=== PATIENT | male | born 1965 | race Caucasian/White ===

== ENCOUNTER 2021-04-27 12:38 | Emergency (ER) | payer OTHER, SELFPAY ==
[2021-04-27 12:52] VITALS: BP 128/92; PULSE 82; RESP 16; TEMP 36.1; O2SAT 100
--- NOTE | 2021-04-27 13:14 | ED.GENADULT ---
HPI - General Adult General Chief complaint: Wound/Laceration Stated complaint: lt thumb inf Source: patient Mode of arrival: ambulatory Limitations: no limitations History of Present Illness HPI narrative: Patient presents for evaluation of pain and swelling to the left thumb since yesterday. He indicates that 6 days ago he got his left thumb caught between a folding door and a wall. He woke up yesterday with swelling and an area that looked infectious to him surround the nailplate of the left thumb. He states pain is 5/10 in severity. No descriptive quality to the pain. No paresthesias or loss of ROM. However, movement causes worsening pain. he is right hand dominant. He is not diabetic. Date of last tetanus unknown. Related Data Allergies Allergy/AdvReac Type Severity Reaction Status Date / Time No Known Allergies Allergy Mild Verified 04/27/21 12:53 Review of Systems Review of Systems: CONSTITUTIONAL: Denies fever, chills, or sweats. EYES: Denies visual changes, redness, or discharge. ENT: Denies rhinorrhea, congestion, sore throat, or otalgia. CARDIOVASCULAR: Denies chest pain, palpitations, or edema. RESPIRATORY: Denies cough or dyspnea. GASTROINTESTINAL: Denies abdominal pain, nausea, vomiting, or diarrhea. GENITOURINARY: Denies dysuria or hematuria. SKIN: Reports redness to left thumb. Denies rash or itching. MUSCULOSKELETAL: Reports pain in left thumb. Denies back pain NEUROLOGIC: Denies headache, numbness, dizziness, or weakness. PSYCHIATRIC: Denies anxiety or depression. [facility] Past Medical History Medical History (Updated 04/27/21 @ 14:14 by ROBER Ace, ) Hx of colonic polyps Surgical History Surgical History No pertinent past surgical history Family History Family History Father Family history of diabetes mellitus in first degree relative Social History Social History (Updated 04/27/21 @ 14:15 by ROBER Ace, ) Smoking status: Never smoker Second hand tobacco smoke exposure: No Alcohol intake: current Substance use: never Living arrangements: with family Gender identity (if verbalized by the patient): Male Sexual Orientation (if Verbalized by the Patient): Straight or Heterosexual Spiritual care concerns: No Exam Narrative: GENERAL: Well-appearing, well-nourished, and in no acute distress. HEAD: Normocephalic, atraumatic. EYES: PERRLA and EOMI. ENT: Nares clear, no rhinorrhea or epistaxis. Mucous membranes moist. Oropharynx without tonsillar hypertrophy exudate or other lesions. Bilateral TMs pearly rosario nonbulging NECK: Supple. No adenopathy or masses. No carotid bruits or JVD CHEST: Clear to auscultation. No respiratory distress. No wheezes rales or rhonchi HEART: Regular rate and rhythm. No murmur heard. Normal peripheral pulses. ABDOMEN: Soft, nontender, nondistended, normal active bowel sounds. EXTREMITIES: Normal range of motion. No edema. SKIN: Redness to distal phalanx of left thumb. Skin tissue surrounding nailplate of left thumb has a white appearance with associated soft tissue swelling NEURO: No focal deficits. Alert and oriented x3. PSYCH: Normal mood and affect. Course Course Emergency Course: This is a 56-year-old male who presented with paronychia of the left thumb. I recommended an x-ray, which he declined. He was updated on his tetanus. He received a digital block and I drained paronychia. Wound culture obtained. Pt tolerated well. He was advised to follow up outpatient for further evaluation and treatment and go to ER for systemic signs of infection. Will dc with bactrim and cephalexin. He may take NSAIDs for pain. Pt in agreement with plan of care. Level of Care: Express Care Visit Vital Signs Vital signs: Vital Signs Temperature 36.1 C L 04/27/21 12:52 Pulse Rate 82 04/27/21 12:52 Respir
[2021-04-27] MEDS: TETANUS,DIPHTHERIA,AC PERTUSSIS ADULT (0.5 ML) BOOSTRIX IM (13:29)
--- NOTE | 2021-04-27 13:34 | PC.NURSE ---
1% Lidocaine 20mL vial not available in pyxis. Override for 1% Lidocaine 10mL vial.
== END 2021-04-27 14:14 | disposition home or self-care (01) ==
PROVIDERS: Emergency Provider Nurse Practitioner; PCP Internal Medicine
DX: L03.012 Cellulitis of left finger (principal); Z23 Encounter for immunization
CPT/HCPCS: 10060; 87070; 87205; 90471; 90715; 99213; G0463

== ENCOUNTER 2021-08-15 01:27 | Day surgery (SDC) | payer OTHER, SELFPAY ==
[2021-07-30 14:59] VITALS: BMI 29.2
--- NOTE | 2021-08-13 12:34 | PM.HPGS ---
History of Present Illness History of Present Illness Consent: Risks, benefits, and alternatives have been discussed and questions answered. Patient agrees to proceed with procedure. Chief complaint: hx of colon polyps Narrative: oBo Quintero is a 56 year old male referred for colon cancer screening. He had 2 adenomas removed about 5 years ago. Review of Systems Review of Systems: All systems reviewed & are unremarkable except as noted in HPI and below PMFSH Past Medical History Medical History Diabetes mellitus GERD (gastroesophageal reflux disease) Hx of colonic polyps Hyperlipidemia Surgical History Surgical History No pertinent past surgical history Family History Family History Father Family history of diabetes mellitus in first degree relative Social History Social History Smoking status: Never smoker Second hand tobacco smoke exposure: No Alcohol intake: current Alcohol use details: social Substance use: never Living arrangements: with family Gender identity (if verbalized by the patient): Male Sexual Orientation (if Verbalized by the Patient): Straight or Heterosexual Spiritual care concerns: No Meds Home Medications and Allergies Home Medications Medication Instructions Recorded Confirmed Type sodium sul 1.479 gram-potas ch See Rx Instructions PO PER PKG DIR 07/12/21 08/15/21 Rx 0.188 gram-magnes sul 0.225 gram #24 tabs tablet (Sutab) atorvastatin 20 mg tablet 20 mg PO DAILY #90 tabs 08/09/21 08/15/21 Rx metformin 500 mg tablet 1,000 mg PO BID #360 tabs 08/12/21 08/15/21 Rx Allergies Allergy/AdvReac Type Severity Reaction Status Date / Time No Known Allergies Allergy Mild Verified 08/15/21 06:58 Exam Resp: Auscultation: clear to auscultation bilaterally Cardio: Rate: regular rate Rhythm: regular rhythm GI: GI Palp: Yes Soft to palpation and No Tenderness to palpation present (GI) Assessment and Plan Assessment and plan (1) Colon cancer screening: Code(s): Z12.11 - Encounter for screening for malignant neoplasm of colon Status: Acute Assessment and Plan: Colonoscopy with possible biopsy or polypectomy or cautery or injection of substances.
--- NOTE | 2021-08-14 18:48 | P.PNAN_ITS ---
Anes - Initial Pre Proc Eval Procedure: Operation Date: 08/15/21 08:00 Proposed Procedures p Screening Colonoscopy - Boo Anderson MD Date/Time: 08/14/21 18:48 Surgeon: Boo Anderson MD Pre Op Diagnosis: hx of colon polyps Patient Data Age: 56 Gender: M Height: 1.83 m Weight: 98 kg Allergies Allergy/AdvReac Type Severity Reaction Status Date / Time No Known Allergies Allergy Mild Verified 08/15/21 06:58 Home Medications Medication Instructions Recorded Confirmed Type sodium sul 1.479 gram-potas ch See Rx Instructions PO PER PKG DIR 07/12/21 08/15/21 Rx 0.188 gram-magnes sul 0.225 gram #24 tabs tablet (Sutab) atorvastatin 20 mg tablet 20 mg PO DAILY #90 tabs 08/09/21 08/15/21 Rx metformin 500 mg tablet 1,000 mg PO BID #360 tabs 08/12/21 08/15/21 Rx Patient hx anesthesia problems: none Family hx anesthesia problems: none Results Review: All pre-operative results and documents have been reviewed as part of the pre- operative evaluation. [facility] Past Medical History Medical History Diabetes mellitus GERD (gastroesophageal reflux disease) Hx of colonic polyps Hyperlipidemia Surgical History Surgical History No pertinent past surgical history Family History Family History Father Family history of diabetes mellitus in first degree relative Social History Social History Smoking status: Never smoker Second hand tobacco smoke exposure: No Alcohol intake: current Alcohol use details: social Substance use: never Living arrangements: with family Gender identity (if verbalized by the patient): Male Sexual Orientation (if Verbalized by the Patient): Straight or Heterosexual Spiritual care concerns: No Anes - Eval Final PreProcedure Day of Procedure 08/14/21 18:48 Patient weight: overweight Heart: regular rate and rhythm Lungs: clear to auscultation Airway: Mallampati scale class II Neurological: alert and oriented Last oral intake: >/= 8 hours ASA classification: III Emergent: no Anesthetic plan: proceed Anesthesia type and monitoring: general GIVS and standard monitoring Results Review: All pre-operative results and documents have been reviewed as part of the pre- operative evaluation. Informed Consent: The patient's anesthetic plan and its attendant risks and benefits were discussed with the patient/family/POA. Questions were solicited and answers provided to the satisfaction of the patient/family/POA.
[2021-08-15] MEDS: LACTATED RINGERS 1,000 ML 150 ML IV CONT (06:50)
[2021-08-15 06:54] VITALS: BP 114/70; PULSE 62; RESP 20; TEMP 36.3; O2SAT 99; BMI 29.0
[2021-08-15 07:19] LABS: Glucose Point of Care 127 mg/dl (65-105)
[2021-08-15 08:13] VITALS: BP 114/70; PULSE 62; RESP 20; O2SAT 99
[2021-08-15 08:23] VITALS: BP 123/91; PULSE 69; RESP 20; O2SAT 99
[2021-08-15 08:33] VITALS: BP 127/79; PULSE 72; RESP 17; O2SAT 100
== END 2021-08-15 08:44 | disposition home or self-care (01) ==
PROVIDERS: PCP Family Medicine; Visit Provider Internal Medicine Gastroenterology
PROC: 0DJD8ZZ Inspection of Lower Intestinal Tract, Via Natural or Artificial Opening Endoscopic (ICD-10-PCS; CPT 45378; principal; 2021-08-15 08:00)
DX: Z12.11 Encounter for screening for malignant neoplasm of colon (principal); Z86.010 Personal history of colon polyps; K57.30 Diverticulosis of large intestine without perforation or abscess without bleeding; Z79.84 Long term (current) use of oral hypoglycemic drugs; E11.9 Type 2 diabetes mellitus without complications; K21.9 Gastro-esophageal reflux disease without esophagitis; E78.5 Hyperlipidemia, unspecified
CPT/HCPCS: 45378; 82948; J2704; J7120

== ENCOUNTER 2022-01-14 09:13 | Outpatient (CLI) | payer OTHER, SELFPAY ==
[2022-01-14 19:12] LABS: Cholesterol 136 mg/dL (0-200); HDL Direct 39 mg/dL; Triglycerides 146 mg/dL (<150)
[2022-01-14 19:23] LABS: LDL Cholesterol Direct 57 mg/dL
[2022-01-14 21:02] LABS: Hemoglobin A1C 9.2 % (<5.7)
[2022-01-14 21:45] LABS: Creatinine Urine 207.1 mg/dL
[2022-01-14 21:50] LABS: Microalbumin Urine Random 18.7 mg/L (0-16.7)
== END 2022-01-14 09:14 | disposition home or self-care (01) ==
LOC: ANHGOSHLAB 09:15
PROVIDERS: PCP Family Medicine; Visit Provider Family Medicine
DX: E78.5 Hyperlipidemia, unspecified (principal); E11.65 Type 2 diabetes mellitus with hyperglycemia
CPT/HCPCS: 36415; 80061; 82043; 83036

== ENCOUNTER 2022-07-15 09:58 | Outpatient (CLI) | payer OTHER, SELFPAY ==
[2022-07-15 14:32] LABS: Alanine Aminotransferase 63 U/L (6-50); Albumin Level 4.2 g/dL (3.5-5.1); Alkaline Phosphatase 74 U/L (38-126); Anion Gap 8 mmol/L (8-16); Aspartate Amino Transferase 56 U/L (17-59); Bilirubin,Total 0.4 mg/dL (0.2-1.3); Blood Urea Nitrogen 14 mg/dL (9-20); Calcium 8.4 mg/dL (8.4-10.2); Carbon Dioxide 27 mmol/L (22-30); Chloride 102 mmol/L (98-107); Cholesterol 162 mg/dL (0-200); Estimated Glomerular Filt Rate > 60; Glucose 126 mg/dL (65-110); HDL Direct 44 mg/dL; Sodium 137 mmol/L (137-145); Triglycerides 136 mg/dL (<150)
[2022-07-15 14:50] LABS: LDL Cholesterol Direct 79 mg/dL
[2022-07-15 14:52] LABS: Creatinine Urine 274.3 mg/dL
[2022-07-15 14:56] LABS: MALB Creatinine Ratio 10.9 mg/g (0-30)
[2022-07-15 14:57] LABS: Prostate Specific Antigen 1.1 ng/mL (< OR = 4.0)
[2022-07-15 14:59] LABS: Hemoglobin A1C 7.2 % (<5.7)
== END 2022-07-15 09:59 | disposition home or self-care (01) ==
LOC: ANHGOSHLAB 09:59
PROVIDERS: PCP Family Medicine; Visit Provider Family Medicine
DX: Z13.228 Encounter for screening for other metabolic disorders (principal); Z13.220 Encounter for screening for lipoid disorders; E11.9 Type 2 diabetes mellitus without complications; Z12.5 Encounter for screening for malignant neoplasm of prostate
CPT/HCPCS: 36415; 80053; 80061; 82043; 83036; 84153; G0103

== ENCOUNTER 2023-02-10 16:21 | Emergency (ER) | payer OTHER, SELFPAY ==
[2023-02-10 16:29] VITALS: BP 125/86; PULSE 78; RESP 16; TEMP 36.6; O2SAT 99
--- NOTE | 2023-02-10 16:30 | ED.GENADULT ---
HPI - General Adult General Chief complaint: Unspecified Stated complaint: Nose Irritation Time Seen by Provider: 02/10/23 16:32 Source: patient Mode of arrival: ambulatory Limitations: no limitations Related Data Allergies Allergy/AdvReac Type Severity Reaction Status Date / Time No Known Allergies Allergy Mild Verified 01/15/23 10:46 Review of Systems Review of Systems: Pertinent positives per HPI. Patient denies any fever, chills, rash, headache, visual changes, dizziness, cough, shortness of breath, chest pain, palpitations, nausea, vomiting, diarrhea, constipation, abdominal pain, or any urinary issues. PMFSH Past Medical History Medical History Diabetes mellitus GERD (gastroesophageal reflux disease) Hx of colonic polyps Hyperlipidemia Surgical History Surgical History No pertinent past surgical history Family History Family History Father Family history of diabetes mellitus in first degree relative Social History Social History Smoking status: Never smoker Second hand tobacco smoke exposure: No Alcohol intake: current Alcohol use details: social Substance use: never Lack of Transportation: No Lack of Food: Never True Current Housing: I Have Housing Concerned About Future Housing: No Difficulty Paying Gas/Electric Bills: No Difficulty Paying for Meds: No Currently Unemployed: No Education: Bachelor's Degree Difficulty w/ Childcare or Family Care: No Living arrangements: with family Gender identity (if verbalized by the patient): Male Sexual Orientation (if Verbalized by the Patient): Straight or Heterosexual Spiritual care concerns: No Comments At the time of my signature, I reviewed and agree with the nursing past medical, surgical, social, and family history. There is no relevant family history pertinent to the patient complaint. Exam Narrative: General: Well-developed, well nourished, in no apparent distress Head: Normocephalic, atraumatic Eyes: Pupils equally round and reactive to light bilaterally, EOM intact, sclera and conjunctive clear, no discharge, lids normal Ears: TMs intact and clear, ear canals clear, no drainage, grossly hearing normal. Nose: Nares patent, no discharge, no inflammation, no sinus tenderness. Mouth: Oral pharynx without lesions or masses, good dentition, MMM. Neck: Supple, trachea midline, no enlargement of anterior or posterior cervical nodes, no thyroid masses or goiter palpable. Cardio: Regular rate and rhythm, s1 and s2 normal, no murmur appreciated. Resp: Clear to auscultation bilaterally, no rhonchi, rales, wheezing or rubs Course Course Emergency Course: Portions of this record may have been created with voice recognition software. Level of Care: Express Care Visit Vital Signs Vital signs: Vital Signs Temperature 36.6 C 02/10/23 16:29 Pulse Rate 78 02/10/23 16:29 Respiratory Rate 16 02/10/23 16:29 Blood Pressure 125/86 02/10/23 16:29 Pulse Oximetry 99 02/10/23 16:29 Temperature 36.6 C 02/10/23 16:29 Pulse Rate 78 02/10/23 16:29 Respiratory Rate 16 02/10/23 16:29 Blood Pressure 125/86 02/10/23 16:29 Pulse Oximetry 99 02/10/23 16:29 Vital signs reviewed Medical Decision Making Vital Signs Vital Signs: Vital Signs Temperature 36.6 C 02/10/23 16:29 Pulse Rate 78 02/10/23 16:29 Respiratory Rate 16 02/10/23 16:29 Blood Pressure 125/86 02/10/23 16:29 Pulse Oximetry 99 02/10/23 16:29 Temperature 36.6 C 02/10/23 16:29 Pulse Rate 78 02/10/23 16:29 Respiratory Rate 16 02/10/23 16:29 Blood Pressure 125/86 02/10/23 16:29 Pulse Oximetry 99 02/10/23 16:29 Discharge Plan Discharge Clinical Impression: [place]
== END 2023-02-10 16:36 | disposition home or self-care (01) ==
PROVIDERS: Emergency Provider Nurse Practitioner Family; PCP Family Medicine
DX: A49.9 Bacterial infection, unspecified (principal); E11.9 Type 2 diabetes mellitus without complications; E78.5 Hyperlipidemia, unspecified
CPT/HCPCS: 99213; G0463

== ENCOUNTER 2023-07-16 11:16 | Outpatient (CLI) | payer OTHER, SELFPAY ==
[2023-07-16 13:50] LABS: Alanine Aminotransferase 46 U/L (6-50); Albumin Level 4.6 g/dL (3.5-5.1); Alkaline Phosphatase 120 U/L (38-126); Anion Gap 8 mmol/L (4-12); Aspartate Amino Transferase 53 U/L (17-59); Bilirubin,Total 0.9 mg/dL (0.2-1.3); Blood Urea Nitrogen 14 mg/dL (9-20); Calcium 9.3 mg/dL (8.4-10.2); Carbon Dioxide 26 mmol/L (22-30); Chloride 102 mmol/L (98-107); Estimated Glomerular Filt Rate > 60; Glucose 247 mg/dL (65-110); HDL Direct 39 mg/dL; Potassium 4.1 mmol/L (3.4-5.0); Sodium 136 mmol/L (137-145); Triglycerides 150 mg/dL (<150)
[2023-07-16 13:58] LABS: Microalbumin Urine Random 7.9 mg/L (0-16.7)
[2023-07-16 14:00] LABS: LDL Cholesterol Direct 103 mg/dL
[2023-07-16 14:08] LABS: MALB Creatinine Ratio 10.7 mg/g (0-30)
[2023-07-16 14:33] LABS: Cholesterol 186 mg/dL (0-200); Prostate Specific Antigen 0.8 ng/mL (< OR = 4.0)
[2023-07-16 21:42] LABS: Hemoglobin A1C 11.3 % (<5.7)
== END 2023-07-16 11:17 | disposition home or self-care (01) ==
LOC: ANHGOSHLAB 11:17
PROVIDERS: PCP Family Medicine; Visit Provider Family Medicine
DX: Z13.220 Encounter for screening for lipoid disorders (principal); Z12.5 Encounter for screening for malignant neoplasm of prostate; E11.9 Type 2 diabetes mellitus without complications; Z13.228 Encounter for screening for other metabolic disorders
CPT/HCPCS: 36415; 80053; 80061; 82043; 83036; 84153; G0103

== ENCOUNTER 2023-11-16 11:07 | Outpatient (CLI) | payer OTHER, SELFPAY ==
[2023-11-16 13:52] LABS: Alanine Aminotransferase 20 U/L (6-50); Albumin Level 4.4 g/dL (3.5-5.1); Alkaline Phosphatase 101 U/L (38-126); Anion Gap 11 mmol/L (4-12); Aspartate Amino Transferase 39 U/L (17-59); Bilirubin,Total 0.6 mg/dL (0.2-1.3); Blood Urea Nitrogen 13 mg/dL (9-20); Calcium 9.2 mg/dL (8.4-10.2); Carbon Dioxide 25 mmol/L (22-30); Chloride 104 mmol/L (98-107); Estimated Glomerular Filt Rate > 60; Glucose 125 mg/dL (65-110); Sodium 140 mmol/L (137-145)
== END 2023-11-16 11:08 | disposition home or self-care (01) ==
LOC: ANHGOSHLAB 11:08
PROVIDERS: PCP Family Medicine; Visit Provider Family Medicine
DX: Z13.228 Encounter for screening for other metabolic disorders (principal); E11.9 Type 2 diabetes mellitus without complications
CPT/HCPCS: 36415; 80053; 83036

== ENCOUNTER 2024-03-30 16:57 | Emergency (ER) | payer OTHER, SELFPAY ==
[2024-03-30 17:17] VITALS: BP 133/84; PULSE 79; RESP 16; O2SAT 99
--- NOTE | 2024-03-30 17:46 | ED_ITS ---
HPI - URI/Sore Throat General Chief Complaint: Upper Respiratory Infection Stated Complaint: Head Congestion History of Present Illness HPI Narrative: 59-year-old male presented for complaint of nasal congestion 1 week. Endorses sinus pressure. Denies nausea vomiting, diarrhea, fevers or chills. Using [id number] medicine for symptoms. Related Data Home Medications ?Medication ?Instructions ?Recorded ?Confirmed ?Last Taken ?Type atorvastatin 40 mg tablet 40 mg PO DAILY 09/14/23 11/16/23 Unknown History Allergies Allergy/AdvReac Type Severity Reaction Status Date / Time No Known Allergies Allergy Mild Verified 03/30/24 17:18 Review of Systems Review of Systems: Per HPI [facility] Past Medical History Medical History GERD (gastroesophageal reflux disease) Hyperlipidemia Hx of colonic polyps Diabetes mellitus Surgical History Surgical History No pertinent past surgical history Family History Family History Father Family history of diabetes mellitus in first degree relative Social History Social History Smoking status: Never smoker Second hand tobacco smoke exposure: No Alcohol intake: current Alcohol use details: social Substance use: never Lack of Transportation: No Lack of Food: Never True Current Housing: I Have Housing Concerned About Future Housing: No Difficulty Paying Gas/Electric Bills: No Difficulty Paying for Meds: No Currently Unemployed: No Education: Bachelor's Degree Difficulty w/ Childcare or Family Care: No Living arrangements: with family Gender identity (if verbalized by the patient): Male Sexual Orientation (if Verbalized by the Patient): Straight or Heterosexual Spiritual care concerns: No Exam Narrative: GENERAL: well-appearing, no acute distress. EYES: conjunctivae clear ENT: Mucous membranes moist. TM pearly rosario with normal light reflex bilaterally; no tragal tenderness. Oropharynx not erythematous without lesions. No drooling, no hoarseness, no trismus, uvula midline. No tripod positioning, hot potato voice, or soft palate swelling. NECK: Supple. No lymphadenopathy CHEST: Clear to auscultation, breath sounds equal. No respiratory distress, speaks in full sentences. HEART: Regular rate and rhythm. No murmur heard. SKIN: Warm, dry, no rash. NEURO: Alert and oriented x3. Course Course Emergency Course: Patient is aware of diagnosis, understands and agrees to treatment plan. Anticipatory guidance given. Patient agrees to follow-up as directed and is aware of reasons to seek care at the emergency department. Portions of this record may have been created with voice recognition software Level of Care: Express Care Visit Vital Signs Vital signs: Vital Signs Pulse Rate 79 03/30/24 17:17 Respiratory Rate 16 03/30/24 17:17 Blood Pressure 133/84 03/30/24 17:17 Pulse Oximetry 99 03/30/24 17:17 Pulse Rate 79 03/30/24 17:17 Respiratory Rate 16 03/30/24 17:17 Blood Pressure 133/84 03/30/24 17:17 Pulse Oximetry 99 03/30/24 17:17 MDM - URI/Sore Throat MDM Narrative Medical decision making narrative: Discussed physical exam findings, Advise supportive treatments. Patient is appropriate for outpatient treatment and follow-up. Differential Diagnosis Differential diagnosis: Likely upper respiratory infection, otitis media, sinusitis, viral infection and pharyngitis Discharge Plan Discharge Clinical Impression: Upper respiratory infection Patient Disposition: Home, Self-Care Condition: Stable Instructions: Antibiotic Form, Sinusitis (ED) Additional Instructions: Take antibiotic as directed Flonase spray and Zyrtec (or Claritin/Lupe) over the counter Cough syrup may cause drowsiness; avoid driving or take it at night time. Tylenol 1000mg every 8 hours as needed for pain Rest, fluids, and increase humidity of the air at home. Follow up with your primary care provider in 1 week. Go to the ER for worsening symptoms or concerns. Patient Language: Greek Prescriptions: New amoxicillin-pot clavulanate 875-125 mg tablet 1 tablet PO Q12H 7 Days Qty: 14 0RF No Action (DME) blood-glucose meter [Contour Meter] Misc See Rx Instructions .Route Qty: 1 0RF Rx Instructions: CHECK BG PRN SYMPTOMS (DME) Contour Test Strips Strip See Rx Instructions .Route Qty: 100 0RF Rx Instructions: CHECK BG PRN SYMPTOMS atorvastatin 40 mg tablet 40 mg PO DAILY Eliquis 5 mg tablet 5 mg PO BID Qty: 60 4RF (DME) lancets [Microlet Lancet] Misc See Rx Instructions .ROUTE .COMPLEX Qty: 100 5RF Dose Instruction: USE TO CHECK BLOOD GLUCOSE NEEDED FOR SYMPTOMS Rx Instructions: USE TO CHECK BLOOD GLUCOSE NEEDED FOR SYMPTOMS tirzepatide 10 mg/0.5 mL pen injector 10 mg subcut WEEKLY 90 Days Qty: 6.5 1RF metformin 500 mg tablet 1,000 mg PO BID Qty: 360 1RF empagliflozin 25 mg tablet 25 mg PO DAILY Qty: 90 1RF Follow-up/Referrals: Ed Lambert DO [Primary Care Provider] - Time of Disposition: 17:50
== END 2024-03-30 17:51 | disposition home or self-care (01) ==
PROVIDERS: Emergency Provider Nurse Practitioner Family; PCP Internal Medicine
DX: J06.9 Acute upper respiratory infection, unspecified (principal); E11.9 Type 2 diabetes mellitus without complications; E78.5 Hyperlipidemia, unspecified; K21.9 Gastro-esophageal reflux disease without esophagitis
CPT/HCPCS: 99213; G0463

== ENCOUNTER 2024-05-19 11:18 | Outpatient (CLI) | payer OTHER, SELFPAY ==
--- OUTSIDE RECORDS SUMMARY | 2024-05-19 12:10 | XMS_ITS | Clinical Summary ---
Author Organization [facility] [employer] Address [address] [facility] [place] [address] Care Team Providers Care Tuyere Fitter Name Role Phone Provider, No Pcp Primary Care Provider Unavailab le Source Comments [facility] [employer],non-owned Affiliates and Associated Physician Practices is amultiple site organization consisting of ambulatory clinics and hospital sitesin [place], [place], [place] and [place]. This disclosure is being madepursuant to the Care Everywhere program and may not contain all information available regarding this patient. Last updated [email or web address] Allergies No known active allergies Medications * Be aware that medications may not be up to date on this document. Alwaysverify current medications with the patient. Medication Sig Dispensed Refills Start Date End Date Status empagliflozin (Jardiance) 10 MG tablet Take 1 (one) tablet by mouth once daily Active metFORMIN (Glucophage) 500 MG tablet Take 2 (two) tablets by mouth once daily Active tirzepatide (Mounjaro) 2.5 MG/0.5ML injection Inject 2.5 (two and one-half) mg subcutaneously every Thursday Active atorvastatin (Lipitor) 40 MG tabletIndications :TIA (transient ischemic attack) Take 1 (one) tablet by mouth at bedtime 90 tablet 3 09/01/2023 Active apixaban (Eliquis) 5 MG tabletIndications :Paroxysmal A-fib (HCC) Take 1 (one) tablet by mouth 2 times daily 60 tablet 5 11/27/2023 Active Active Problems Problem Noted Date Diagnosed Date Paroxysmal atrial fibrillation 12/10/2023 Vision changes 08/30/2023 Acute ischemic stroke 08/30/2023 Vertigo 08/29/2023 Type 2 diabetes mellitus, wi thout long-term current use of insulin 08/29/2023 Hyperlipidemia 08/29/2023 Encounters Date Type Department Care Team Description 05/05/2024 1:10 AM CDT Clinical Support [facility] [address] [facility] [address] [phone] Paroxysmal atrial fibrillation ; Acute ischemic stroke 03/31/2024 1:10 PM STEWARD/STEWARDESS BANQUET Clinical Support [facility] - Cardiology [address] [facility], [address] [phone] Paroxysmal atrial fibrillation ; Acute ischemic stroke 02/25/2024 1:10 AM STEWARD/STEWARDESS BANQUET Clinical Support [facility] - Cardiology [address] [facility], [address] [phone] Paroxysmal atrial fibrillation ; Acute ischemic stroke from Last 3 Months Social History Tobacco Use Types Packs/Day Years Used Date Smoking Tobacco: Never Passive Smoke Exposure: Never Smokeless Tobacco: Never Alcohol Use Standard Drinks/Week Comments Yes 1 (1 standard drink = 0.6 oz pur e alcohol) AUDIT-C Answer Date Recorded Q1: How often do you have a drink containing alc ohol? 2-4 times a month 08/31/2023 Q2: How many drinks containi ng alcohol do you have on a typical day when you are drinking? 1 or 2 08/31/2023 Q3: How often do you have si x or more drinks on one occasion? Never 08/31/2023 Overall Financial Resource Strain (CARDIA) Answe r Date Recorded How hard is it for you to pa y for the very basics like food, housing, medical care, and heating? Not hard at all 08/31/2023 PHQ-2 Answer Date Recorded Patient Health Questionnaire-2 Score 0 08/30/2023 [facility] - Occupational Stress Questionnaire Answer Date Recorded Do you feel stress - tense, restless, nervous, or anxious, or unable to sleep at night because your mind is troubled all the time - these days? Not at all 08/31/2023 Hunger Vital Sign Answer Date Recorded Within the past 12 months, y ou worried that your food would run out before you got the money to buy more. Never true 08/31/19 24 Within the past 12 months, t he food you bought just didn't last and you didn't have money to get more. Never true 08/31/2023 PRAPARE - Transportation Answer Date Re corded In the past 12 months, has l ack of transportation kept you from medical appointments or from getting medications? No 08/16 In the past 12 months, has l ack of transportation kept you from meetings, work, or from getting things needed for daily living? No 08/31/2023 Housing Stability Vital Sign Answer Juan e Recorded In the last 12 months, was t here a time when you were not able to pay the mortgage or rent on time? No 08/31/2023 In the last 12 months, how many places have you lived? 1 08/31/2023 In the last 12 months, was t here a time when you did not have a steady place to sleep or slept in a retirement (including now)? No 08/31/2023 Sex and Gender Information Value Date Recorded Sex Assigned at Not on file Gender Identity Not on file Sexual Orientation Not on file Last Filed Vital Signs Vital Sign Reading Time Taken Comments Blood Pressure 108/76 12/10/2023 8:23 AM CDT Pulse 75 12/10/2023 8:23 AM CDT Temperature 36.8 C (98.2 F) 09/01/2023 8:57 AM CDT Respiratory Rate 10 10/08/2023 9:29 AM CDT Oxygen Saturation 93% 12/10/2023 8:23 AM CDT Inhaled Oxygen Concentration - - Weight 92.5 kg (204 lb) 12/10/2023 8:23 AM CDT Height 182.9 cm (6') 12/10/2023 8:23 AM CDT Body Mass Index 27.67 12/10/2023 8:23 AM CDT Plan of Treatment Upcoming Encounters Date Type Department Care Team (Late st Contact Info) Description 06/09/2024 1:10 AM CDT Clinical Support [facility] - [facility]iology [address], [address] [phone] 07/14/2024 1:10 AM CDT Clinical Support [facility] - Cardiology [address], [address] [phone] 08/18/2024 1:10 AM CDT Clinical Support [facility] - Cardiology [address] [facility], [address] [phone] 12/08/2024 8:00 AM CDT Office Visit [facility] - Cardiology [address] [facility], [phone] [place] [phone] Farhat Arita MD [address] [facility], [phone] [place] [address] Health Maintenance Due Date Last Done Comments COLOGUARD (AGES 45-75) - COLON CA SCREENING 1966 COLON MONITORING 1966 COLONOSCOPY - COLON CA SCREENING 1966 CT COLONOGRAPHY - COLON CA SCREENING 1966 Colorectal Cancer Screening 1966 FIT - COLON CA SCREENING 1966 FLEX SIG - COLON CA SCREENING 1966 HIV SCREENING 1981 HEPATITIS C SCREENING 01/19/1984 DTAP/TDAP/TD VACCINES (1 - Tdap) 1985 HEPATITIS B VACCINE (1 of 3 - 19+ 3-dose series) 1985 PNEUMOCOCCAL VACCINE 50+ (1 of 2 - PCV) 1985 ZOSTER VACCINE (1 of 2) 01/24/2016 DIABETES RETINOPATHY SCREENING 08/29/2023 DIABETES-FOOT EXAM WITH MONOFILAMENT 08/29/2023 COVID-19 VACCINE ( - season) 2023 DIABETES-HGB A1C 12/01/2023 08/31/2023 DEPRESSION SCREENING 02/17/2024 08/29/2023 DIABETES - URINE PROTEIN SCREENING 02/17/2024 DIABETES-SERUM CREATININE 08/31/20242023, 08/31/2023, 08/30/2023, Additional history exists INFLUENZA VACCINE (Season Ended) 2024 HIB VACCINE Aged Out No longer eligi ble based on patient's age to complete this topic HPV VACCINE Aged Out No longer eligi ble based on patient's age to complete this topic MENINGOCOCCAL (Group B) VACCINE SHARED DECISION-MAKING Aged Out No longer eligible based on patient's age to complete this topic MENINGOCOCCAL GROUPS A/C/Y/W VACCINE Aged Out No longer eligible based on patient's age to complete this topic Medical Devices Implanted Type Area Hot Tamale Man Device Identifier Shelf Expiration Date Model / Serial / Lot Sys Crd Mntr Rvl Linq Ii - [id number] Implanted:Qty: 1 on 09/01/2023 by Farhat Arita MD at [facility] Left: Chest Wall [employer] [place] [id number] 02/03/2025 [id number] / [id number] / [id number] Procedures Procedure Name Priority Date/Time Associated Diagnosis Comments LA ILR DEVICE INTERROGAT REMOTE Routine 05/09/2024 1:21 PM CDT Paroxysmal atrial fibrillation Acute ischemic stroke CARDIAC PROCEDURE ORDER 05/03/2024 LA ILR DEVICE INTERROGAT REMOTE Routine 04/10/2024 12:45 AM STEWARD/STEWARDESS BANQUET Paroxysmal atrial fibrillation Acute ischemic stroke LA ILR DEVICE INTERROGAT REMOTE Routine 03/06/2024 9:09 PM STEWARD/STEWARDESS BANQUET Paroxysmal atrial fibrillation Acute ischemic stroke CARDIAC PROCEDURE ORDER 02/23/2024 BASIC METABOLIC PANEL (CALCIUM TOTAL) Routine 09/01/2023 5:15 AM CDT TIA (transient ischemic attack) HEMOGLOBIN A1C Add on 08/31/2023 3:53 AM CDT TIA (transient ischemic attack) from Last 3 Months or Most Recently Relevant to Health Maintenance Results * LA ILR DEVICE INTERROGAT REMOTE (05/09/2024 1:21 PM CDT) Narrative Noemi Blas MD - 05/09/2024 1:21 PM CDT Noemi Blas MD 05/09/2024 1:22 PM Remote Interrogation: Pertinent Findings: Device function within normal limits. No events noted. Noemi Blas MD Cardiac Electrophysiology Noemi Blas MD PROCEDURE/MINOR SURG ICAL ORDERABLES * CARDIAC PROCEDURE ORDER (05/03/2024) Only the most recent of2 resultswithin the time period is included. Narrative 05/03/2024 Ordered by an unspecified provider. Scanned Document CARDIAC SERVICES ORD ERABLES * LA ILR DEVICE INTERROGAT REMOTE (04/10/2024 12:45 AM STEWARD/STEWARDESS BANQUET) Farhat Dexter MD - 04/10/2024 12:45 AM STEWARD/STEWARDESS BANQUET Farhat Arita MD 04/10/2024 12:45 AM Dear Boo Quintero, I reviewed the remote interrogation of your loop recorder. Your device's sensing is appropriate and stable. During this most recent monitored period ending on 03/29/2024 your atrial fibrillation/tachycardia burden was 0% and you had no significant arrhythmias. Device function is normal, no programming changes are required, and no medications will need to be changed. Please call our offices if you have any further questions. Sincerely, Farhat Arita 04/10/2024 Farhat Arita MD PROCEDURE/MINOR SURG ICAL ORDERABLES * LA ILR DEVICE INTERROGAT REMOTE (03/06/2024 9:09 PM STEWARD/STEWARDESS BANQUET) Farhat Dexter MD - 03/06/2024 9:09 PM STEWARD/STEWARDESS BANQUET Farhat Arita MD 03/06/2024 9:09 PM Dear Boo Quintero, I reviewed the remote interrogation of your loop recorder. Your device's sensing is appropriate and stable. During this most recent monitored period ending on 02/23/2024 your atrial fibrillation/tachycardia burden was 0% and you had no significant arrhythmias. Device function is normal, no programming changes are required, and no medications will need to be changed. Please call our offices if you have any further questions. Sincerely, Farhat Arita 03/06/2024 Farhta Arita MD PROCEDURE/MINOR SURG ICAL ORDERABLES * (ABNORMAL) BASIC METABOLIC PANEL (CALCIUM TOTAL) (09/01/2023 5:15 AM CDT) [facility] BUN 10 7 - 26 mg/dL 09/01/2023 8:57 AM CDT [facility] Creatinine 0.93 0.71 - 1.16 mg/dL 09/01/2023 8:57 AM [facility] Sodium 140 136 - 145 mmol/L 09/01/2023 8:57 AM [facility] Potassium 3.5 3.5 - 4.5 mmol/L 09/01/2023 8:57 AM [facility] Chloride 108(H) 98 - 107 mmol/L 09/01/2023 8:57 AM [facility] CO2 20(L) 22 - 29 mmol/L 09/01/2023 8:57 AM [facility] Glucose 147(H) 70 - 115 mg/dL 09/01/2023 8:57 AM [facility] Calcium 9.0 8.4 - 10.2 mg/dL 09/01/2023 8:57 AM [facility] Anion Gap 12 6 - 16 09/01/2023 8:57 AM [facility] BUN/Creatinine Ratio 11 7 - 23 09/01/2023 8:57 AM [facility] Osmolality Calculated 292 275 - 295 mOsm/kg 09/01/2023 8:57 AM [facility] eGFR by CKD-EPI >90 >=90 mL/min/1.7 3 m2 09/01/2023 8:57 AM [facility] Blood BLOOD SPECIMEN / Unknown Lab Venipuncture / Unknown 09/01/2023 5:15 AM CDT 09/01/2023 6:46 AM T Lucas Valentine MD LAB - CHEMISTRY IRIS SIM [facility] Organization Address City/[facility] Co de Phone Number [facility] [address] [place] [phone], [facility] [phone] * (ABNORMAL) HEMOGLOBIN A1C (08/31/2023 3:53 AM CDT) Hemoglobin A1c 9.7(H) <=5.6 % 08/31/2023 11:51 AM [facility] Estimated Average Glucose 232 mg/dL 08/31/2023 11:51 AM [facility] Comment: HbA1c Interpretation: Normal : < 5.7% Pre-diabetes: 5.7-6.4% Diabetes: Equal to or greater than 6.5% Test results diagnostic of diabetes should be repeated for confirmation. Treatment target values recommended by ADA and other clinical organizations should be used to evaluate metabolic control in patients. Reference: [place] [employer] Association, Standards of Care in Diabetes -2020 In patients 70 years and older consider HbA1c target range of 7.0-7.5% (Reference: Dany Cormier et al. JAMDA. 2012) The Sebia assay for the measurement of HbA1c is a National Glycohemoglobin Standardization Program (NGSP) certified method. Blood BLOOD SPECIMEN / Unknown Lab Venipuncture / Unknown 08/31/2023 3:53 AM CDT 08/31/2023 4:33 AM CDT Lucas Valentine MD LAB - CHEMISTRY IRIS SIM [facility] Organization Address City/State/ZIP Co de Phone Number [id number] [place] [address], [facility] [phone] from Last 3 Months or Most Recently Relevant to Health Maintenance Advance Directives * Full Code (Latest Code Status on File) Date Activated Date Inactivated Comments 08/29/2023 8:05 PM 09/01/2023 7:20 PM Care Teams Tuyere Fitter Relationship Specialty Start Date End Date Provider, No Pcp PCP - General 08/31/23
[2024-05-19 19:14] LABS: Basophils Absolute Auto 0.1 K/mm3 (0.0-0.1); Basophils Percent Auto 1.3 % (0.2-1.2); Eosinophils Absolute Auto 0.2 K/mm3 (0-0.3); Eosinophils Percent Auto 3.3 % (0-4.4); Hematocrit 48.5 % (42.0-52.0); Hemoglobin 15.8 g/dL (14.0-18.0); Immature Granulocyte Absolute 0.02 K/mm3 (0.00-0.031); Immature Granulocyte Percent A 0.3 % (0-0.5); Lymphocytes Absolute Auto 1.94 K/mm3 (0.9-3.2); Lymphocytes Percent Auto 28.8 % (18.3-44.2); Mean Corpuscular HGB Conc 32.6 g/dl (32-36); Mean Platelet Volume 10.7 fl (7.4-10.4); Monocytes Absolute Auto 0.6 K/mm3 (0.1-0.6); Monocytes Percent Auto 9.1 % (2.6-8.5); Neutrophils Absolute Auto 3.9 K/mm3 (1.3-6.7); Neutrophils Percent Auto 57.2 % (45.5-73.1); Platelet Count Result 347 k/mm3 (150-375); Red Blood Count 5.27 M/mm3 (4.6-6.20); Red Cell Distribution Width 13.4 % (11.5-14.5); White Blood Count 6.7 K/mm3 (4.5-10.0)
[2024-05-19 19:21] LABS: Alanine Aminotransferase 22 U/L (6-50); Albumin Level 4.7 g/dL (3.5-5.1); Alkaline Phosphatase 109 U/L (38-126); Anion Gap 11 mmol/L (4-12); Aspartate Amino Transferase 30 U/L (17-59); Bilirubin,Total 0.6 mg/dL (0.2-1.3); Blood Urea Nitrogen 11 mg/dL (9-20); Carbon Dioxide 28 mmol/L (22-30); Chloride 101 mmol/L (98-107); Cholesterol 151 mg/dL (0-200); Estimated Glomerular Filt Rate > 60; Glucose 125 mg/dL (65-110); HDL Direct 48 mg/dL; Potassium 4.8 mmol/L (3.4-5.0); Sodium 140 mmol/L (137-145); Triglycerides 145 mg/dL (<150)
[2024-05-19 19:39] LABS: LDL Cholesterol Direct 63 mg/dL
[2024-05-19 20:25] LABS: Hemoglobin A1C 6.8 % (<5.7)
[2024-05-19 20:27] LABS: Creatinine Urine 86.7 mg/dL
[2024-05-19 20:36] LABS: MALB Creatinine Ratio 18.3 mg/g (0-30); Microalbumin Urine Random 15.9 mg/L (0-16.7)
== END 2024-05-19 11:19 | disposition home or self-care (01) ==
LOC: ANHGOSHLAB 11:19
PROVIDERS: PCP Internal Medicine; Visit Provider Nurse Practitioner
DX: E11.9 Type 2 diabetes mellitus without complications (principal); I48.0 Paroxysmal atrial fibrillation
CPT/HCPCS: 36415; 80053; 80061; 82043; 83036; 85025

== ENCOUNTER 2024-07-17 10:45 | Emergency (ER) | payer OTHER, SELFPAY ==
[2024-07-17 11:06] VITALS: BP 138/102; PULSE 89; RESP 16; TEMP 36.8; O2SAT 98
--- NOTE | 2024-07-17 11:11 | ED_ITS ---
HPI - URI/Sore Throat General Chief Complaint: Upper Respiratory Infection Stated Complaint: SINUS CONGESTION Time Seen by Provider: 07/17/24 11:10 Source: patient Mode of arrival: ambulatory Limitations: no limitations History of Present Illness HPI Narrative: Boo is a 59 year old male patient presenting to the clinic today with c/o sinus congestion, pressure, runny nose, and headache x 8 days. Denies any known fever, chills, or body MD elicited complaint: sore throat and nasal congestion Related Data Home Medications ?Medication ?Instructions ?Recorded ?Confirmed ?Last Taken ?Type atorvastatin 40 mg tablet 40 mg PO DAILY 09/14/23 07/17/24 Unknown History Allergies Allergy/AdvReac Type Severity Reaction Status Date / Time No Known Allergies Allergy Mild Verified 07/17/24 10:59 Review of Systems Review of Systems: Pertinent positives per HPI. Patient denies any fever, chills, rash, headache, visual changes, dizziness, cough, shortness of breath, chest pain, palpitations, nausea, vomiting, diarrhea, constipation, abdominal pain, or any urinary issues. [facility] Past Medical History Medical History GERD (gastroesophageal reflux disease) Hyperlipidemia Hx of colonic polyps Diabetes mellitus Surgical History Surgical History No pertinent past surgical history Family History Family History Father Family history of diabetes mellitus in first degree relative Social History Social History Smoking status: Never smoker Second hand tobacco smoke exposure: No Alcohol intake: current Alcohol use details: social Substance use: never Lack of Transportation: No Lack of Food: Never True Current Housing: I Have Housing Concerned About Future Housing: No Difficulty Paying Gas/Electric Bills: No Difficulty Paying for Meds: No Currently Unemployed: No Education: Bachelor's Degree Difficulty w/ Childcare or Family Care: No Living arrangements: with family Gender identity (if verbalized by the patient): Male Sexual Orientation (if Verbalized by the Patient): Straight or Heterosexual Spiritual care concerns: No Comments At the time of my signature, I reviewed and agree with the nursing past medical, surgical, social, and family history. There is no relevant family history pertinent to the patient complaint. Exam Narrative: General: Well-developed, well nourished, in no apparent distress Head: Normocephalic, atraumatic Eyes: Pupils equally round and reactive to light bilaterally, EOM intact, sclera and conjunctive clear, no discharge, lids normal Ears: TMs intact and clear, ear canals clear, no drainage, grossly hearing normal. Nose: Nares patent, yellow nasal discharge,severe inflammation, maxillary and frontal sinus tenderness. Mouth: Oral pharynx without lesions or masses, good dentition, MMM. Neck: Supple, trachea midline, no enlargement of anterior or posterior cervical nodes, no thyroid masses or goiter palpable. Cardio: Regular rate and rhythm, s1 and s2 normal, no murmur appreciated. Resp: Clear to auscultation bilaterally, no rhonchi, rales, wheezing or rubs Course Course Emergency Course: Portions of this record may have been created with voice recognition software. Level of Care: Express Care Visit Vital Signs Vital signs: Vital Signs Temperature 36.8 C 07/17/24 11:06 Pulse Rate 89 07/17/24 11:06 Respiratory Rate 16 07/17/24 11:06 Blood Pressure 138/102 H 07/17/24 11:06 Pulse Oximetry 98 07/17/24 11:06 Oxygen Delivery Room Air 07/17/24 11:06 Temperature 36.8 C 07/17/24 11:06 Pulse Rate 89 07/17/24 11:06 Respiratory Rate 16 07/17/24 11:06 Blood Pressure 138/102 H 07/17/24 11:06 Pulse Oximetry 98 07/17/24 11:06 Oxygen Delivery Room Air 07/17/24 11:06 Vital signs reviewed MDM - URI/Sore Throat MDM Narrative Medical decision making narrative: At the time of visit patient is resting comfortably on the exam table. Patient appears to be nontoxic. Plan: I suspect patient has sinusitis. Prescription for Augmentin and prednisone was sent to the pharmacy. Supportive measures were discussed with the patient and they voiced understanding discharge instructions and agrees to treatment plan. Return precautions reviewed Differential Diagnosis Differential diagnosis: Likely upper respiratory infection, otitis media, sinusitis, viral infection, bronchitis, influenza, pharyngitis and other (COVID) Discharge Plan Discharge Clinical Impression: Sinusitis Patient Disposition: Home Condition: Stable Instructions: Antibiotic Form, Sinusitis (ED) Additional Instructions: Take prescription medications only as prescribed-prednisone and Augmentin Increase fluids and stay well hydrated Tylenol/motrin for pain/fever Flonase and OTC antihistamines as directed Vicks vapor rub to open sinuses Sinus rinses for congestion Cepacol spray, cough drops, throat lozenges, warm tea with honey/lemon, gargle salt water to soothe throat BRAT diet for diarrhea Clear liquids x 24 hours then advance as tolerated for nausea/vomiting Go to the ED if you develop a worsening in your condition- high fever not controlled by Tylenol or Motrin, dehydration, weakness, lethargy, shortness of breath, or chest pain. Follow up with your PCP in 3-5 days if symptoms persist. Patient Language: [place] Prescriptions: No Action (DME) blood-glucose meter [Contour Meter] Misc See Rx Instructions .Route Qty: 1 0RF Rx Instructions: CHECK BG PRN SYMPTOMS (DME) Contour Test Strips Strip See Rx Instructions .Route Qty: 100 0RF Rx Instructions: CHECK BG PRN SYMPTOMS atorvastatin 40 mg tablet 40 mg PO DAILY Eliquis 5 mg tablet 5 mg PO BID Qty: 60 4RF (DME) lancets [Microlet Lancet] Misc See Rx Instructions .ROUTE .COMPLEX Qty: 100 5RF Dose Instruction: USE TO CHECK BLOOD GLUCOSE NEEDED FOR SYMPTOMS Rx Instructions: USE TO CHECK BLOOD GLUCOSE NEEDED FOR SYMPTOMS metformin 500 mg tablet 1,000 mg PO BID Qty: 360 1RF empagliflozin 25 mg tablet 25 mg PO DAILY Qty: 90 1RF tirzepatide 10 mg/0.5 mL pen injector 10 mg subcut WEEKLY 90 Days Qty: 6 1RF Follow-up/Referrals: Ed Lambert DO [Primary Care Provider] - Time of Disposition: 11:29 Quality NIHSS Nursing Documentation ED NIHSS nursing documentation: reviewed/agree
== END 2024-07-17 11:37 | disposition home or self-care (01) ==
PROVIDERS: Emergency Provider Nurse Practitioner Family; PCP Internal Medicine
DX: J32.9 Chronic sinusitis, unspecified (principal); E11.9 Type 2 diabetes mellitus without complications; Z79.84 Long term (current) use of oral hypoglycemic drugs; E78.5 Hyperlipidemia, unspecified; K21.9 Gastro-esophageal reflux disease without esophagitis
CPT/HCPCS: 99213; G0463

== ENCOUNTER 2024-12-30 10:21 | Outpatient (CLI) | payer OTHER, SELFPAY ==
[2025-01-03 10:09] LABS: Free Testosterone (Direct) 6.0 pg/mL (7.2-24.0)
== END 2024-12-30 10:22 | disposition home or self-care (01) ==
LOC: ANHGOSHLAB 10:22
PROVIDERS: PCP Internal Medicine; Visit Provider Clinical Nurse Specialist
DX: E29.1 Testicular hypofunction (principal)
CPT/HCPCS: 84402; 84403